=== PATIENT | female | born 1950 | race Caucasian/White ===

== ENCOUNTER 2018-12-06 07:54 | Outpatient (CLI) | payer BC, MEDICARE ==
[~2018-12-06] VITALS: Ht 175.3 cm; Wt 83.9 kg
[2018-12-06] MEDS ORDERED: albuterol 2.5 MG/3 ML nebule NEB ONE (08:14)
== END 2018-12-06 23:59 | disposition home or self-care (01) ==
LOC: RT 07:54
PROVIDERS: ATTEND Internal Medicine Critical Care Medicine
DX: J98.4 Other disorders of lung (principal); R06.02 Shortness of breath; D86.89 Sarcoidosis of other sites; R06.09 Other forms of dyspnea
CPT/HCPCS: 94060; 94729; 94760